=== PATIENT | female | born 1950 | race Caucasian/White ===

== ENCOUNTER 2019-09-22 16:26 | Inpatient (IN) | payer MEDICARE, OTHER ==
[~2019-09-22] VITALS: Ht 162.6 cm; Wt 68.9 kg
--- NOTE | 2019-09-22 16:30 | NUR ---
PT BIB [facility] FROM [facility] DUE TO POOR INTAKE AND WEAKNESS, PT IS AAOX1, NOT IN RESPIRATORY DISTRESS, HOOKED TO TOWNSHIP SUPERVISOR, KEPT RESTED AND COMFORTABLE. WILL CONTINUE TO MONITOR.
--- NOTE | 2019-09-22 17:00 | NUR ---
URINE SPECIMEN COLLECTED AND SENT TO LAB.
--- NOTE | 2019-09-22 17:04 | NUR ---
COVID SWAB OBTAINED AND SENT TO LAB.
--- NOTE | 2019-09-22 17:09 | NUR ---
ER PHLEB AT BEDSIDE FOR BLOOD DRAW.
[2019-09-22] MEDS ORDERED: FERR325T23 PO (17:11)
[2019-09-22] MEDS ORDERED: ACET-868 PO (17:11)
[2019-09-22] MEDS ORDERED: BISA5TAB10 PO (17:11)
[2019-09-22] MEDS ORDERED: ACID1TAB12 PO (17:11)
[2019-09-22] MEDS ORDERED: MAG30ORA PO (17:11)
[2019-09-22] MEDS ORDERED: POLY17PO4 PO (17:11)
[2019-09-22] MEDS ORDERED: ONDA4TAB5 PO (17:11)
[2019-09-22] MEDS ORDERED: FURO-145 PO (17:11)
[2019-09-22] MEDS ORDERED: PANT40TA2 PO (17:11)
[2019-09-22] MEDS ORDERED: APIX5TAB PO (17:11)
[2019-09-22] MEDS ORDERED: ASCO-352 PO (17:11)
[2019-09-22] MEDS ORDERED: MORP20SO PO ×2 (17:11)
[2019-09-22] MEDS ORDERED: MULT-24 PO (17:11)
--- NOTE | 2019-09-22 17:19 | NUR ---
CALLED NURSING SUP FOR TELE BED.
[2019-09-22 17:23] LABS: BASOPHILS # (AUTO) 0.2 /CMM (0.0-0.2); BASOPHILS % (AUTO) 0.7 % (0.0-2.0); HEMATOCRIT 27 % (33-45); HEMOGLOBIN 7.5 g/dL (11.5-14.8); LYMPHOCYTES # (AUTO) 2.7 /CMM (0.8-4.8); LYMPHOCYTES % (AUTO) 8.3 % (20.0-44.0); MEAN CORPUSCULAR HGB CONC 28 g/dl (31.0-36.0); MEAN CORPUSCULAR VOLUME 94 fL (82-100); MONOCYTES # (AUTO) 1.1 /CMM (0.1-1.30); MONOCYTES % (AUTO) 3.3 % (2.0-12.0); NEUTROPHILS # (AUTO) 29.2 /CMM (1.8-8.9); NEUTROPHILS % (AUTO) 87.7 % (43.0-81.0); PLATELET COUNT (AUTO) 378 /CMM (150-450); RED BLOOD CELL COUNT(AUTO) 2.88 MIL/uL (4.0-5.2)
[2019-09-22 17:32] LABS: WHITE BLOOD COUNT (AUTO) 33.2 K/uL (4.3-11.0)
[2019-09-22 17:46] LABS: ALANINE AMINOTRANSFERASE 19 U/L (12-78); ALKALINE PHOSPHATASE 368 U/L (46-116); ASPARTATE AMINOTRANSFERASE 302 U/L (15-37); B-TYPE NATRIURETIC PEPTIDE 1560 PG/ML (0-125); BILIRUBIN,TOTAL 2.7 mg/dL (0.2-1.0); CALCIUM, SERUM 7.2 mg/dL (8.5-10.1); CARBON DIOXIDE 19 mmol/L (21-32); CHLORIDE 94 mmol/L (98-107); CREATININE 0.9 mg/dL (0.6-1.3); POTASSIUM 5.7 mmol/L (3.5-5.1); SODIUM SERUM 129 mmol/L (136-145); TOTAL PROTEIN, SERUM 5.6 g/dL (6.4-8.2); UREA NITROGEN, BLOOD 31 mg/dL (7-18)
[2019-09-22 17:48] LABS: ALBUMIN 1.1 g/dL (3.4-5.0); GLUCOSE 40 mg/dL (74-106)
[2019-09-22] MEDS ORDERED: DEXTROSE 50%-WATER 50 ML DISP.SYRIN ONE (17:48)
[2019-09-22] MEDS ORDERED: IV D5 LR 1,000 ML IV ONE (17:50)
--- NOTE | 2019-09-22 17:58 | NUR ---
RT at bedside for ABG
[2019-09-22] MEDS ORDERED: DEXTROSE 50%-WATER 50 ML DISP.SYRIN IV ONE (18:00)
[2019-09-22 18:01] LABS: APPEARANCE,URINE Slightly Cloudy (CLEAR); BILIRUBIN,URINE LARGE (NEGATIVE); BLOOD, URINE Trace-lysed Ery/uL (NEGATIVE); COLOR,URINE Brown (YELLOW); KETONES,URINE 15 (NEGATIVE); LEUKOCYTE ESTERASE ,URINE Negative (NEGATIVE); NITRITE, URINE Negative (NEGATIVE); PROTEIN,URINE 30 mg/dl (NEGATIVE); UGLUCOSE Negative (NEGATIVE); UROBILINOGEN,URINE >=8.0 EU/dL (0.2)
[2019-09-22 18:05] LABS: ABG BASE EXCESS -6.7 mmol/L; ABG OXYGEN SATURATION 98.6 % (92.0-98.5); ABG PCO2 25.7 mmHg (35.0-45.0); ABG PH 7.432 (7.350-7.450); ABG PO2 148.2 mmHg (75.0-100.0); AaDO2 49.9 mmHg; COHb 0.6 % (0.5-1.5); MetHb 0.7 % (0.0-1.5); O2Hb 97.3 % (94.0-97.0); SITE, ABG Right Radial; VENT MODE, BG 3L NC
[2019-09-22 18:22] LABS: BACTERIA,URINE Few /HPF (None Seen); SQUAMOUS EPITHELIAL CELL,UR Few /HPF (None Seen); URINE AMORPHOUS URATE Moderate /HPF (None Seen); WBC,URINE 0-2 /HPF (0-3)
[2019-09-22 18:24] LABS: CALCIUM PHOSPHATE CRYSTALS,UR Few /HPF (None Seen)
[2019-09-22 18:36] LABS: D-DIMER 8.1 mg/L(FEU (0.17-0.50)
[2019-09-22 18:49] LABS: CREATINE KINASE, TOTAL 462 U/L (26-192); FERRITIN 2704 ng/mL (8-388)
[2019-09-22 18:50] LABS: C-REACTIVE PROTEIN 42.1 mg/dL (0.0-0.9)
--- NOTE | 2019-09-22 18:52 | NUR ---
MD MADE AWARE OF BP. VERBAL ORDER RECEIVED FOR 500ML NS IVPB. CARRIED OUT, PATIENT PLACED IN [place] POSITION. WILL CONTINUE TO MONITOR PATIENT.
[2019-09-22] MEDS ORDERED: IV NS 0.9% 500 ML BAG IV ONE ×2 (19:00→20:00)
--- NOTE | 2019-09-22 19:16 | NUR ---
REPORT GIVEN TO LAKISHA PARHAM FOR NICCI
--- NOTE | 2019-09-22 19:36 | NUR ---
notified of low blood pressure
--- NOTE | 2019-09-22 19:37 | NUR ---
MD ORDERED FOR 500ML OF NORMAL SALINE 0.9% IV.
--- NOTE | 2019-09-22 19:40 | NUR ---
PATIENT IS GIVEN IV NORMAL SALINE 0.9% 500ML PER MD'S ORDER.
--- NOTE | 2019-09-22 19:57 | NUR ---
INTELLECTUAL PROPERTY COUNSEL AT BEDSIDE FOR BLOOD DRAW
[2019-09-22 20:04] LABS: BAND % (MANUAL) 1 % (0.0-5.0); LYMPHOCYTES % (MANUAL) 5 % (16-48); MONOCYTES % (MANUAL) 4 % (0-11.0); NEUTROPHILS % (MANUAL) 90 (42-76)
--- NOTE | 2019-09-22 20:09 | NUR ---
REPORT GIVEN TO HELENA PARHAM FOR NICCI.
--- NOTE | 2019-09-22 20:27 | NUR ---
PATIENT TAKEN UP TO ADMITTING ROOM.
[2019-09-22 20:29] LABS: BILIRUBIN,DIRECT 2.1 mg/dL (0.0-0.2)
--- NOTE | 2019-09-22 20:45 | NUR ---
RN OPENING NOTES CONT.... The client SR on external telemonitor. The client has edema in the lower extremities, sacral redness, and bilateral lower extremities heel redness. Has a Martini cath draining well. Is on clear liquid diet. the client is covid + as of 09/12/19. All safety mechanisms in place at this time, will continue to monitor and inform the hospitalist of the client condition.
--- NOTE | 2019-09-22 20:45 | NUR ---
RN OPENING NOTES Receive the client from the ED. VS 85/52, HR 104, RR 20, O2 SAT 100% on 2L NC, TEMP 97.5. A/O X1. The client doesn't seem in respiratory distress, denies pain, has no s/s of pain. The client was give IV bolus of 500ml of NS. Hss 20G on the L arm.
--- NOTE | 2019-09-22 21:10 | NUR ---
2109 PAGED JORDY MONDRAGON FOR ADMISSION ORDERS, PER HIM JORDY LONDONO WILL WRITE ORDERS.
--- NOTE | 2019-09-22 21:20 | NUR ---
2119 FISHER SPONGE HOOKING SPRING NOTIFIED OF ADMISSION. MADE HER AWARE THAT PATIENT'S BP UPON ADMISSION WAS IN THE 80S WHEN CHECKED TWICE. ALSO MADE HER AWARE THAT PER SON PATIENT IS DNR/DNI. SHE SAID SHE IS WRITING ORDERS.
[2019-09-22] MEDS ORDERED: Z GUARD REMEDY 2 OZ OINT TP PRN (21:30)
[2019-09-22] MEDS ORDERED: ACETAMINOPHEN 325 MG TABLET PO PRN (21:30)
[2019-09-22] MEDS ORDERED: ZOLPIDEM TARTRATE 5 MG TABLET PO PRN (21:30)
[2019-09-22] MEDS ORDERED: IV NS 0.9% 500 ML IV ONE (21:30)
[2019-09-22] MEDS ORDERED: ONDANSETRON HCL/PF 4 MG/2 ML VIAL IVP PRN (21:30)
--- NOTE | 2019-09-22 21:32 | NUR ---
2132 CURRENT BP 93/42 RELAYED TO JORDY LONDONO.
--- NOTE | 2019-09-22 21:44 | NUR ---
RN NOTES SPOKE WITH THE SON OF THE CLIENT AT 2129 ABOUT THE STATUS CODE OF THE CLIENT. The son, Chance Clarke states that it is the wish of the client (Seda Goff) to be DNR/DNI. The son of the client has requested that if the client becomes unstable to be transferred to ICU. The current VS of the client are as follow BP 93/59, O2 100%, A/O x1. Hr 103. Hospitalist is aware.
[2019-09-22] MEDS: ZOSYN IVPB 3.375 G in IV D5W 50ml IV SCH (22:00)
--- NOTE | 2019-09-22 22:00 | NUR ---
RN NOTES VS are being monitored and are as follow: BP 89/56, HR 103, SAT 98% ON 2L NC, RR 17. Hospitalist is aware.
[2019-09-22] MEDS: HEPARIN SODIUM, PORCINE 5000 UNITS/1 ML VIAL SQ SCH (22:11)
[2019-09-22] MEDS ORDERED: DEXTROSE 50%-WATER 50 ML DISP.SYRIN IV PRN (22:30)
[2019-09-22] MEDS ORDERED: VANCOMYCIN 1.5 GM in IV D5W 500ml IV ONE (22:30)
--- NOTE | 2019-09-22 22:30 | NUR ---
2230 METAL RIVET MACHINE OPERATOR SPRING AT BEDSIDE AND EXAMINED PATIENT. AWARE OF LATEST BP 83/48. SHE IS SPEAKING TO PATIENT'S SON BENTLEY AT THIS TIME.
[2019-09-22] MEDS ORDERED: PIPERACILLIN /TAZOBACTAM 3.375 G VIAL IV ONE (22:45)
[2019-09-22] MEDS ORDERED: VANCOMYCIN 1 GM VIAL ONE (22:45)
--- NOTE | 2019-09-22 23:00 | NUR ---
RN NOTES VS are as follow: temp 97.4, HR 103, RR18, O2 100% ON 2L NC, BP 84/49. Hospitalist has recommended to transferred the client to ICU.
[2019-09-23] VITALS (89 sets, daily range): BP systolic 75–112; BP diastolic 25–69
--- NOTE | 2019-09-23 00:10 | NUR ---
0010 SPRING WAS UPDATED ON PATIENT'S LATEST VITAL SIGNS INSTRUCTED BY HER, FOLLOWS: BP 76/44, HR 97, O2 SAT 100% T 97.4 WITH ORDER TO TRANSFER PATIENT TO ICU AND TO START ON LEVOPHED FOR BP SUPPORT. ORDER NOTED. HOUSE SUP AND ICU CHARGE NURSE NOTIFIED.
[2019-09-23] MEDS: BLOOD SUGAR DIAGNOSTIC 1 EACH STRIP IN SCH ×4 (00:18→17:29)
[2019-09-23] MEDS: IV D5/ 0.9% NACL 1,000 ML IV PRN ×2 (00:22→12:18)
[2019-09-23] MEDS ORDERED: NOREPINEPHRINE 8 MG in IV NS 0.9% 242 ML IV PRN (00:30)
--- NOTE | 2019-09-23 00:30 | NUR ---
RN NOTES Spoke with the son of the client that the client as previously mentioned will be transferring to ICU. The son was reached at [phone].
--- NOTE | 2019-09-23 00:35 | NUR ---
0035 REPORT GIVEN TO PRASAD CALIX FOR TRANSFER OF CARE WITH QUESTIONS ANSWERED.
--- NOTE | 2019-09-23 00:55 | NUR ---
0055 TRANSFER TO ICU ON ACLS PROTOCOL.
[2019-09-23] MEDS ORDERED: NOREPINEPHRINE 4 MG/4 ML AMPUL IV ONE (01:28)
[2019-09-23 01:34] LABS: CALCIUM, SERUM 7.1 mg/dL (8.5-10.1)
[2019-09-23] MEDS: NOREPINEPHRINE 8 MG in IV NS 0.9% 242 ML IV PRN ×4 (02:47→22:59)
[2019-09-23 04:16] LABS: BASOPHILS # (AUTO) 0.1 /CMM (0.0-0.2); BASOPHILS % (AUTO) 0.3 % (0.0-2.0); EOSINOPHILS % (AUTO) 0.1 % (0.0-6.0); HEMATOCRIT 23 % (33-45); MEAN CORPUSCULAR HGB CONC 29 g/dl (31.0-36.0); MEAN CORPUSCULAR VOLUME 91 fL (82-100); MONOCYTES # (AUTO) 1.3 /CMM (0.1-1.30); MONOCYTES % (AUTO) 3.8 % (2.0-12.0); NEUTROPHILS # (AUTO) 31.2 /CMM (1.8-8.9); NEUTROPHILS % (AUTO) 92.8 % (43.0-81.0); PLATELET COUNT (AUTO) 395 /CMM (150-450); RED BLOOD CELL COUNT(AUTO) 2.54 MIL/uL (4.0-5.2)
[2019-09-23 04:33] LABS: CALCIUM, SERUM 6.7 mg/dL (8.5-10.1); CARBON DIOXIDE 18 mmol/L (21-32); CHLORIDE 96 mmol/L (98-107); CREATININE 1.1 mg/dL (0.6-1.3); GLUCOSE 122 mg/dL (74-106); MAGNESIUM 2.3 mg/dL (1.8-2.4); PHOSPHORUS 4.9 mg/dL (2.5-4.9); POTASSIUM 4.7 mmol/L (3.5-5.1); SODIUM SERUM 129 mmol/L (136-145); UREA NITROGEN, BLOOD 29 mg/dL (7-18)
[2019-09-23 04:35] LABS: CHOLESTEROL 163 mg/dL (<200); CREATINE KINASE, TOTAL 317 U/L (26-192); LDL 125 mg/dL (0-99); TRIGLYCERIDES 263 mg/dL (30-150)
[2019-09-23 04:55] LABS: HDL CHOLESTEROL < 10 mg/dL (40-60)
[2019-09-23 05:00] LABS: HEMOGLOBIN 6.6 g/dL (11.5-14.8); WHITE BLOOD COUNT (AUTO) 33.6 K/uL (4.3-11.0)
[2019-09-23 05:02] LABS: BAND % (MANUAL) 3 % (0.0-5.0); LYMPHOCYTES % (MANUAL) 2 % (16-48); MONOCYTES % (MANUAL) 2 % (0-11.0); NEUTROPHILS % (MANUAL) 93 (42-76)
[2019-09-23] MEDS ORDERED: PIPERACILLIN /TAZOBACTAM 3.375 G VIAL IV ONE (05:08)
[2019-09-23] MEDS: ZOSYN IVPB 3.375 G in IV D5W 50ml IV SCH (05:11)
[2019-09-23] MEDS ORDERED: IV NS 0.9% 500 ML IV ONE (06:30)
--- NOTE | 2019-09-23 06:30 | NUR ---
NOTIFIED QUINCY MONDRAGON NP THAT PATIENT HAS MULTIPLE CRITICAL LAB VALUES WHICH ARE WBC- 33.6, HGB-6.6/HCT- 23, LACTIC ACID 5.5 WITH ORDERS TO GIVE 1 UNIT PRBC, 500 NS BOLUS WITH LACTIC ACID RECHECK AFTER BOLUS. READ BACK ORDERS PERFORMED AND CARRIED OUT. WILL CONTINUE TO MONITOR.
[2019-09-23] MEDS ORDERED: IV NS 0.9% 250 ML IV ONE (07:00)
[2019-09-23] MEDS ORDERED: FEE PK DOSING 1 MIN EA MC ONE (07:23)
--- NOTE | 2019-09-23 07:23 | NUR ---
WOUND CARE CONSULT: REVIEWED CHART, NURSING DOCUMENTATION AND PHOTOS WHICH SHOW DISCOLORATION TO FEET AND HEELS, SACRAL INTACT DEEP TISSUE INJURY AND MALIGNANT WOUND TO ABDOMEN, ALL PRESENT ON ADMISSION. RECOMMEND SURGICAL CONSULT. DR DYER TO BE NOTIFIED OF CONSULT REQUEST. RECOMMENDATIONS MADE FOR SKIN PROTECTION AND DISCUSSED WITH NURSING STAFF. FIRST STEP LOW AIRLOSS MATTRESS IS ON ORDER. WILL SEE PRN. IN AGREEMENT WITH PLAN OF CARE.
--- NOTE | 2019-09-23 08:44 | NUR ---
received pt from chief privacy officer, s/p severe sepsis, covid positive, metastatic colon cancer, lethargic, follows commands at times, ST, on 2L 02 sat well, BL leg edema, NPO, f/c intact, blood transfusion started, v/s stable, no pain, pt turned and repositioned.
[2019-09-23] MEDS: HEPARIN SODIUM, PORCINE 5000 UNITS/1 ML VIAL SQ SCH ×2 (09:34→21:11)
[2019-09-23 09:44] LABS: IRON, SERUM 21 ug/dl (50-175); TOTAL IRON BINDING CAPACITY 49 ug/dl (250-450)
[2019-09-23] MEDS: VANCOMYCIN 1 GM in IV D5W 250 ML IV SCH ×2 (11:15→22:52)
--- NOTE | 2019-09-23 12:07 | NUR ---
1 unit PRBCs transfused, v/s stable, no transfusion reactions.
[2019-09-23 12:38] LABS: FERRITIN 2537 ng/mL (8-388)
[2019-09-23] MEDS: HYDROCORTISONE SOD SUCCINATE 100 MG/2 ML VIAL IV SCH ×2 (12:41→16:32)
[2019-09-23] MEDS: PIPERACILLIN /TAZOBACTAM 3.375 G in IV D5W 100 ML IV SCH ×2 (12:41→20:22)
--- NOTE | 2019-09-23 16:08 | NUR ---
pt is resting in the bed, lethargic, non communicative, ST, receiving levo at 0.3mcg, v/s stable, no pain, pt cleaned, changed and repositioned.
--- NOTE | 2019-09-23 18:56 | NUR ---
PRELIMINARY DUPLEX VENOUS LOWER EXT BI SHOWED POSITIVE FOR DVT AT LT GSV,CFV,SFV,POPV AND RIGHT POPV. INITIAL FINDINGS RELAYED TO RN.
--- NOTE | 2019-09-23 19:45 | NUR ---
ICU/PROGRAM CHECKER REPORT RECEIVED FROM THE TO DAY NURSE. SEE FLOWSHEET FOR ASSESSMENT, SKIN ISSUES ARE ADDRESSED ON FLOWSHEET ALONG WITH INTERVENTION TO EACH. PT ALERT X1-2. PT IS ON 2 LITERS VIA N/C WITH SATURATION AT 99%. WILL MONITOR THIS PT AND HER SATURATION. PT WAS TURNED AND REPOSITIONED FOR COMFORT AND CARE. NO ACUTE DISTRESS SEEN AT THIS TIME, WILL CONTINUE TO MONITOR THIS PT.
--- NOTE | 2019-09-23 19:50 | NUR ---
ICU/CHAINMAN RENAISSANCE IMAGING CALLED WITH CRITICAL RESULT FOR US THAT WAS DONE EARLIER BUT RESULTED AT 1923. THIS WAS: Right leg: Positive DVT in the popliteal vein. Left leg: Positive DVT from the common femoral vein to the popliteal vein. There is also clot extending into the greater saphenous vein. CALL WAS PLACED TO THE MAKING LINE WORKER QUINCY LUND
--- NOTE | 2019-09-23 20:15 | NUR ---
ICU/SIMULATION TECH WET MACHINE CUTTER EQUIPMENT OILER QUINCY LUND CALLED BACK, TOLD ABOUT US RESULT SAID OK, AND THAT PT IS BLEEDING FROM SOME WHERE. TRUE THAT THE PT RECEIVED 1 UNIT PRBC. THEN SAID OK NO NEW ORDERERS.
[2019-09-24] VITALS (91 sets, daily range): BP systolic 94–123; BP diastolic 58–90
[2019-09-24] MEDS ORDERED: MORPHINE SULFATE INJ 2 MG/ML DISP.SYRIN IM ONE
--- NOTE | 2019-09-24 00:10 | NUR ---
ICU/FRAME TENDER PT APPEARED TO BE IN PAIN, USING FLACC SCALE IT WAS DETERMINED THAT PAIN WAS 10/10. THERE WAS NO PRN MEDICATION. A CALL WAS PLACED TO THE ELECTRIFIER OPERATOR REMBERTO MATHEW FOR SOMETHING.
--- NOTE | 2019-09-24 00:20 | NUR ---
ICU/SPRING COILER GOT AN ORDER FOR MORPHINE 2 MG IVP TIMES ONE. ORDER WAS PLACED IN COMPUTER THEN CARRIED OUT BY CHARGE NURSE. WILL CONTINUE TO MONITOR THIS PT AND HER PAIN LEVEL.
[2019-09-24] MEDS: BLOOD SUGAR DIAGNOSTIC 1 EACH STRIP IN SCH ×4 (00:26→17:21)
[2019-09-24] MEDS: INSULIN REGULAR, HUMAN 100 UNIT/ML 3 ML VIAL SQ PRN ×2 (00:27→04:58)
[2019-09-24] MEDS: PIPERACILLIN /TAZOBACTAM 3.375 G in IV D5W 100 ML IV SCH ×3 (02:58→19:44)
[2019-09-24] MEDS: IV D5/ 0.9% NACL 1,000 ML IV PRN ×2 (04:18→17:25)
[2019-09-24 05:19] LABS: CALCIUM, SERUM 7.1 mg/dL (8.5-10.1); CREATININE 1.6 mg/dL (0.6-1.3); MAGNESIUM 2.2 mg/dL (1.8-2.4); PHOSPHORUS 5.2 mg/dL (2.5-4.9); POTASSIUM 4.6 mmol/L (3.5-5.1)
[2019-09-24 05:27] LABS: BASOPHILS # (AUTO) 0.1 /CMM (0.0-0.2); BASOPHILS % (AUTO) 0.2 % (0.0-2.0); HEMATOCRIT 30 % (33-45); HEMOGLOBIN 8.6 g/dL (11.5-14.8); LYMPHOCYTES # (AUTO) 0.8 /CMM (0.8-4.8); LYMPHOCYTES % (AUTO) 2.1 % (20.0-44.0); MEAN CORPUSCULAR HGB CONC 29 g/dl (31.0-36.0); MEAN CORPUSCULAR VOLUME 92 fL (82-100); MONOCYTES # (AUTO) 0.9 /CMM (0.1-1.30); MONOCYTES % (AUTO) 2.6 % (2.0-12.0); NEUTROPHILS # (AUTO) 34.3 /CMM (1.8-8.9); NEUTROPHILS % (AUTO) 95.1 % (43.0-81.0); PLATELET COUNT (AUTO) 379 /CMM (150-450); RED BLOOD CELL COUNT(AUTO) 3.21 MIL/uL (4.0-5.2)
[2019-09-24 05:29] LABS: WHITE BLOOD COUNT (AUTO) 36.1 K/uL (4.3-11.0)
[2019-09-24 05:39] LABS: BAND % (MANUAL) 2 % (0.0-5.0); LYMPHOCYTES % (MANUAL) 8 % (16-48); MONOCYTES % (MANUAL) 4 % (0-11.0); NEUTROPHILS % (MANUAL) 86 (42-76)
[2019-09-24] MEDS: NOREPINEPHRINE 8 MG in IV NS 0.9% 242 ML IV PRN (06:45)
--- NOTE | 2019-09-24 08:16 | NUR ---
received pt from nightclub manager, alert, does not follow commands, non communicative, SR, on 2L 02 sat well, unable to swallow, f/c low urine output, receiving levo at 0.3mcg, v/s stable, we'll ask for PRN pain meds, pt turned and repositioned.
[2019-09-24] MEDS: HYDROCORTISONE SOD SUCCINATE 100 MG/2 ML VIAL IV SCH ×3 (08:27→16:26)
[2019-09-24] MEDS: HEPARIN SODIUM, PORCINE 5000 UNITS/1 ML VIAL SQ SCH ×2 (08:29→20:19)
[2019-09-24] MEDS: VANCOMYCIN 1 GM in IV D5W 250 ML IV SCH (11:00)
[2019-09-24] MEDS: MUPIROCIN OINT 2% 22 GM TUBE SCH ×2 (11:23→20:21)
[2019-09-24] MEDS: MORPHINE SULFATE INJ 4 MG/ML DISP.SYRIN IV PRN (13:39)
--- NOTE | 2019-09-24 16:18 | NUR ---
pt is resting in the bed, alert, does not follow commands, ST, on levo at 0.1mcg, f/c very low output MD aware, v/s stable, morphine 4mg ivp given for pain, seen by Dr Weeks, pt cleaned, changed and repositioned.
[2019-09-24] MEDS: NOREPINEPHRINE 8 MG in IV D5W 242 ML IV PRN (17:02)
--- NOTE | 2019-09-24 19:45 | NUR ---
ICU/IT APPLICATIONS MANAGER REPORT RECEIVED FROM THE TO DAY NURSE. SEE FLOWSHEET FOR ASSESSMENT, SKIN ISSUES ARE ADDRESSED ON FLOWSHEET ALONG WITH INTERVENTION TO EACH. PT ALERT X1. PT IS ON 2 LITERS VIA N/C WITH SATURATION AT 99%. WILL MONITOR THIS PT AND HER SATURATION. PT WAS TURNED AND REPOSITIONED FOR COMFORT AND CARE. NO ACUTE DISTRESS SEEN AT THIS TIME, WILL CONTINUE TO MONITOR THIS PT.
--- NOTE | 2019-09-24 22:10 | NUR ---
ICU/SOFT SUGAR CUTTER PT WAS PROVIDED ORAL CARE AT THIS TIME, THEN PT GIVEN PM CARE. PT TOLERATED THIS WELL, REMAINS ON 2 LITERS VIA N/C WITH SATURATION AT 99%. PT WAS TURNED AND REPOSITIONED FOR COMFORT AND CARE. WILL CONTINUE TO MONITOR THIS PT
[2019-09-25] VITALS (93 sets, daily range): BP systolic 91–124; BP diastolic 54–77
--- NOTE | 2019-09-25 | NUR ---
ICU/SALES PRODUCT MANAGER MIDNIGHT BLOOD SUGAR WAS 101, THERE IS NO COVERED FOR THIS PER SLIDING SCALE ORDERED BY MD. WILL CONTINUE TO MONITOR THIS PER MD ORDERS AND HOSPITAL PROTOCOL.
[2019-09-25] MEDS: BLOOD SUGAR DIAGNOSTIC 1 EACH STRIP IN SCH ×4 (00:08→17:36)
--- NOTE | 2019-09-25 02:20 | NUR ---
ICU/BINDERY CUTTER OPERATOR PT WAS PROVIDED ORAL CARE AT THIS TIME, THEN PT GIVEN AM CARE. PT TOLERATED THIS WELL, REMAINS ON 2 LITERS VIA N/C WITH SATURATION AT 99%. PT WAS TURNED AND REPOSITIONED FOR COMFORT AND CARE. WILL CONTINUE TO MONITOR THIS PT
--- NOTE | 2019-09-25 03:45 | NUR ---
ICU/RABBIT FANCIER MORNING LABS WERE DRAWN, AWAIT FOR NAY ABNORMAL RESULTS.
[2019-09-25] MEDS: PIPERACILLIN /TAZOBACTAM 3.375 G in IV D5W 100 ML IV SCH ×2 (04:03→11:29)
[2019-09-25 04:24] LABS: BASOPHILS # (AUTO) 0.2 /CMM (0.0-0.2); BASOPHILS % (AUTO) 0.4 % (0.0-2.0); HEMATOCRIT 28 % (33-45); HEMOGLOBIN 8.1 g/dL (11.5-14.8); LYMPHOCYTES % (AUTO) 2.5 % (20.0-44.0); MEAN CORPUSCULAR HGB CONC 29 g/dl (31.0-36.0); MEAN CORPUSCULAR VOLUME 93 fL (82-100); MONOCYTES # (AUTO) 1.2 /CMM (0.1-1.30); NEUTROPHILS % (AUTO) 94.1 % (43.0-81.0); PLATELET COUNT (AUTO) 334 /CMM (150-450); RED BLOOD CELL COUNT(AUTO) 3.02 MIL/uL (4.0-5.2)
[2019-09-25 04:31] LABS: WHITE BLOOD COUNT (AUTO) 40.4 K/uL (4.3-11.0)
[2019-09-25 04:33] LABS: CALCIUM, SERUM 7.3 mg/dL (8.5-10.1); CREATININE 1.9 mg/dL (0.6-1.3); MAGNESIUM 2.3 mg/dL (1.8-2.4); PHOSPHORUS 5.8 mg/dL (2.5-4.9); POTASSIUM 4.8 mmol/L (3.5-5.1)
[2019-09-25] MEDS: MORPHINE SULFATE INJ 4 MG/ML DISP.SYRIN IV PRN ×2 (04:54→15:14)
--- NOTE | 2019-09-25 05:00 | NUR ---
ICU/SEMICONDUCTOR PACKAGE SYMBOL STAMPER PT APPEARED TO BE IN PAIN, USING FLACC SCALE IT WAS DETERMINED THAT PAIN WAS 10/10. NOTIFIED CHARGE NURSE ABOUT THIS, WHO THEN GAVE PRN MORPHINE 4MG IVP. WILL CONTINUE TO MONITOR TJIS PT'S PAIN.
[2019-09-25 05:08] LABS: BAND % (MANUAL) 5 % (0.0-5.0); LYMPHOCYTES % (MANUAL) 9 % (16-48); MONOCYTES % (MANUAL) 1 % (0-11.0); NEUTROPHILS % (MANUAL) 85 (42-76)
--- NOTE | 2019-09-25 05:15 | NUR ---
ICU/BEEF CATTLE FARM MANAGER MORNING BLOOD SUGAR WAS 109, THERE IS NO COVERED FOR THIS PER SLIDING SCALE ORDERED BY MD. WILL CONTINUE TO MONITOR THIS PER MD ORDERS AND HOSPITAL PROTOCOL.
[2019-09-25] MEDS ORDERED: BUMETANIDE INJ 4 MG in IV D5W 24 ML IV ONE (08:30)
[2019-09-25] MEDS: HYDROCORTISONE SOD SUCCINATE 100 MG/2 ML VIAL IV SCH ×3 (08:43→17:14)
[2019-09-25] MEDS: MUPIROCIN OINT 2% 22 GM TUBE SCH ×2 (08:44→20:40)
[2019-09-25] MEDS: HEPARIN SODIUM, PORCINE 5000 UNITS/1 ML VIAL SQ SCH ×2 (08:45→20:43)
--- NOTE | 2019-09-25 12:13 | NUR ---
RN NOTE 0715: Received patient passive, awake, answers yes/no to some questions. With IRLANDA PICC intact. IVF infusing as ordered. On Levo @ 0.1mcg, will titrate as ordered. Martini cath intact, noted with very minimal dark winston colored urine. 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 On 2LPM of O2 via NC, satting well. Noted with distended abdomen. Temp 98.8 at this time. 0900: Noted with x1 vomiting, Zofran given as ordered. Kept HOB elevated, unable to tolerated diet. 1150: S/E by Cassandra SPENCE, reported episode of vimitting x1 with dark greenish vomitus. On Levo 0.08mcg at this time. 1210: Placed left NGT, draining dark green gastric residuals, connected to LIS. Noted with 100mL.
[2019-09-25] MEDS: NOREPINEPHRINE 8 MG in IV D5W 242 ML IV PRN (13:01)
[2019-09-25 13:27] LABS: CREATININE, URINE 69.6 MG/DL (30.0-125.0); URINE TOTAL PROTEIN 259.8 mg/dL (0-11.9)
[2019-09-25 14:14] LABS: APPEARANCE,URINE CLOUDY (CLEAR); BILIRUBIN,URINE MODERATE (NEGATIVE); BLOOD, URINE SMALL Ery/uL (NEGATIVE); COLOR,URINE YELLOW (YELLOW); KETONES,URINE TRACE (NEGATIVE); LEUKOCYTE ESTERASE ,URINE TRACE (NEGATIVE); NITRITE, URINE NEGATIVE (NEGATIVE); PROTEIN,URINE 100 mg/dl (NEGATIVE); UGLUCOSE NEGATIVE (NEGATIVE)
[2019-09-25 15:16] LABS: BACTERIA,URINE 3+ /HPF (None Seen); SQUAMOUS EPITHELIAL CELL,UR 0-2 /HPF (None Seen); YEAST,URINE Moderate /HPF (None Seen)
[2019-09-25 15:26] LABS: EOSINOPHIL,URINE None Seen
--- NOTE | 2019-09-25 17:30 | NUR ---
RN NOTE Noted with trying to pull out NGT, placed right SW restraints for safety. LEGAL RECORDS MANAGER made aware.
[2019-09-25] MEDS: IV D5/ 0.9% NACL 1,000 ML IV PRN (18:33)
--- NOTE | 2019-09-25 19:15 | NUR ---
ICU/RN RECEIVED PATIENT A/O X1 PATIENT IS ABLE TO ANSWER TO YES OR NO QUESTIONS BY NODDING. PATIENT NODS TO YES WHEN ASKED IF SHE IS A KHMER SPEAKER. I ASKED HER TO STATE HER NAME BUT PATIENT IS ONLY ABLE TO MUMBLE. PATIENT IS ON 2L OF 02 SATURATING AT 100% WITH NO SIGNS OF ANY SOB. RESPIRATING ARE EVEN AND UNLABORED. PATIENT IS SR AND ST WITH HR AT 105 ON THE BEDSIDE MONITOR. RECORDING STUDIO INTERNSHIP RESTRAINTS APPLIED. FC PATENT AND DRAINING VIA GRAVITY. LT NGT IS ASSESSED WITH LIS WITH DARK GREENISH OUTPUT SEEN. IRLANDA PICC LINE PATENT WITH LEVO RUNNING AT 0.06MCG/KG/MIN, D5NS @100CC/HR, AND TKO INFUSING. ALL SAFETY PRECAUTIONS APPLIED. WILL CONTINUE TO MONITOR PATIENT.
[2019-09-25] MEDS: CEFEPIME 2 GM in IV D5W 100 ML IV SCH (20:40)
[2019-09-26] VITALS (96 sets, daily range): BP systolic 84–105; BP diastolic 47–74
[2019-09-26] MEDS: BLOOD SUGAR DIAGNOSTIC 1 EACH STRIP IN SCH ×5 (00:18→23:52)
--- NOTE | 2019-09-26 01:25 | NUR ---
PATIENT BLEEDING FROM ABDOMEN AREA. MINIMAL BLEEDING SEEN, WILL APPLY PRESSURE WITH GAUZE AND CONTINUE TO MONITOR AREA.
[2019-09-26] MEDS ORDERED: GELATIN SPONGE,ABSORBABLE 1 SPONGE SPONGE TP ONE (02:04)
[2019-09-26] MEDS: MORPHINE SULFATE INJ 4 MG/ML DISP.SYRIN IV PRN (02:15)
[2019-09-26] MEDS: IV D5/ 0.9% NACL 1,000 ML IV PRN ×3 (04:01→23:24)
--- NOTE | 2019-09-26 04:15 | NUR ---
BLEEDING HAS STOPPED FROM ABDOMEN AREA. WILL CONTINUE TO MONITOR.
[2019-09-26] MEDS: INSULIN REGULAR, HUMAN 100 UNIT/ML 3 ML VIAL SQ PRN ×3 (06:07→17:43)
[2019-09-26 06:50] LABS: BASOPHILS # (AUTO) 0.6 /CMM (0.0-0.2); BASOPHILS % (AUTO) 1.3 % (0.0-2.0); EOSINOPHILS % (AUTO) 0.1 % (0.0-6.0); HEMATOCRIT 27 % (33-45); HEMOGLOBIN 7.7 g/dL (11.5-14.8); LYMPHOCYTES # (AUTO) 0.9 /CMM (0.8-4.8); LYMPHOCYTES % (AUTO) 2.1 % (20.0-44.0); MEAN CORPUSCULAR HGB CONC 29 g/dl (31.0-36.0); MEAN CORPUSCULAR VOLUME 94 fL (82-100); MONOCYTES # (AUTO) 1.2 /CMM (0.1-1.30); MONOCYTES % (AUTO) 2.7 % (2.0-12.0); NEUTROPHILS # (AUTO) 41.2 /CMM (1.8-8.9); NEUTROPHILS % (AUTO) 93.8 % (43.0-81.0); PLATELET COUNT (AUTO) 356 /CMM (150-450); RED BLOOD CELL COUNT(AUTO) 2.82 MIL/uL (4.0-5.2)
[2019-09-26 07:01] LABS: BILIRUBIN,TOTAL 1.7 mg/dL (0.2-1.0); CALCIUM, SERUM 7.5 mg/dL (8.5-10.1); CREATININE 2.2 mg/dL (0.6-1.3); MAGNESIUM 2.5 mg/dL (1.8-2.4); PHOSPHORUS 6.9 mg/dL (2.5-4.9); POTASSIUM 4.9 mmol/L (3.5-5.1); TOTAL PROTEIN, SERUM 5.2 g/dL (6.4-8.2)
[2019-09-26 07:04] LABS: ALBUMIN 0.9 g/dL (3.4-5.0)
--- NOTE | 2019-09-26 07:46 | NUR ---
ICU/RN INITIAL NOTES,AM RECEIVED REPORT FROM NIGHT NURSE. PT OPENS EYES, WEAK AND LETHARGIC. ON 2LITERS NASAL CANULA, NO ACUTE DISTRESS NOTED. SINUS TACK ON TELE 101. LEFT NARE NGT IN PLACE TO LIS. HUTCHINS CATH IN PLACE WITH MINIMAL URINE OUTPUT. RIGHT UPPER ARM PICC LINE PATENT AND INTACT, LOW DOSE LEVO FOR BP SUPPORT. SOME BLEEDING NOTED IN ABDOMINAL MASS. WILL CONTINUE TO MONITOR AND ASSESS. ALL NEEDS WILL BE ATTENDED TO, SAFETY MEASURES TAKEN, BED IN LOW POSITION, SIDE RAILS UP, CALL LIGHT WITHIN REACH.
[2019-09-26] MEDS: HYDROCORTISONE SOD SUCCINATE 100 MG/2 ML VIAL IV SCH ×3 (08:19→17:03)
[2019-09-26] MEDS: HEPARIN SODIUM, PORCINE 5000 UNITS/1 ML VIAL SQ SCH ×2 (08:20→21:16)
[2019-09-26] MEDS: MUPIROCIN OINT 2% 22 GM TUBE SCH ×2 (08:21→21:07)
--- NOTE | 2019-09-26 08:30 | NUR ---
ICU/RN: PER DR.PELEG CHE TO ADMINISTER HEPARIN DESPITE SOME BLEEDING NOTED AT ABDOMINAL SITE. WILL CONTINUE TO MONITOR AND ASSESS. BENEFITS OUTWEIGH RISKS.
[2019-09-26] MEDS: PANTOPRAZOLE 40 MG VIAL IV SCH (10:45)
[2019-09-26] MEDS ORDERED: BUMETANIDE INJ 4 MG in IV D5W 24 ML IV ONE (12:00)
[2019-09-26 13:30] LABS: LYMPHOCYTES % (MANUAL) 2 % (16-48); MONOCYTES % (MANUAL) 3 % (0-11.0); MYELOCYTES % 2 % (0-0); NEUTROPHILS % (MANUAL) 93 (42-76)
--- NOTE | 2019-09-26 16:00 | NUR ---
ICU/RN: FAMILY UPDATED ON PT CONDITION. WILL CONTINUE TO MONITOR. MD ROUNDS DONE. NO NEW ORDERS.
[2019-09-26] MEDS: NOREPINEPHRINE 8 MG in IV D5W 242 ML IV PRN (17:12)
--- NOTE | 2019-09-26 19:14 | NUR ---
ICU/RN ENDING NOTES,AM REPORT ENDORSED TO NIGHT NURSE. PT ALERT, LETHARGIC, FOLLOWS SIMPLE COMMANDS. ON 2LITERS NASAL CANULA, NO ACUTE DISTRESS NOTED. ALL NEEDS ATTENDED TO, SAFETY MEASURES TAKEN. WILL CONTINUE TO MONITOR. RIGHT WRIST RESTRAINT INPLACE, MONITORED PER PROTOCOL. NG TO LIS. SMALL OUTPUT NOTED.
--- NOTE | 2019-09-26 20:56 | NUR ---
ICU/RN RECEIVED PATIENT A/O X1 PATIENT IS ABLE TO ANSWER TO YES OR NO QUESTIONS BY NODDING.. PATIENT IS ON 2L OF 02 SATURATING AT 100% WITH NO SIGNS OF ANY SOB. RESPIRATING ARE EVEN AND UNLABORED. PATIENT IS SR AND ST WITH HR AT 101 ON THE BEDSIDE MONITOR. STEREOTYPE CASTER RESTRAINTS APPLIED. FC PATENT AND DRAINING VIA GRAVITY. LT NGT IS ASSESSED WITH LIS WITH DARK GREENISH OUTPUT SEEN. IRLNADA PICC LINE PATENT WITH LEVO RUNNING AT 0.08MCG/KG/MIN, D5NS @100CC/HR, AND TKO INFUSING. ASSESSED ABDOMEN AREA CURRENTLY NO SIGNS OF ANY BLEEDING.ALL SAFETY PRECAUTIONS APPLIED. WILL CONTINUE TO MONITOR PATIENT.
[2019-09-26] MEDS: CEFEPIME 2 GM in IV D5W 100 ML IV SCH (21:07)
[2019-09-26] MEDS: AMPICILLIN 1 GM in IV NS 0.9% 50 ML IV SCH (21:07)
[2019-09-27] VITALS (95 sets, daily range): BP systolic 76–132; BP diastolic 54–76
[2019-09-27] MEDS: MORPHINE SULFATE INJ 2 MG/ML DISP.SYRIN IV PRN (02:07)
[2019-09-27 04:10] LABS: BASOPHILS # (AUTO) 0.3 /CMM (0.0-0.2); BASOPHILS % (AUTO) 0.8 % (0.0-2.0); HEMATOCRIT 28 % (33-45); HEMOGLOBIN 7.7 g/dL (11.5-14.8); LYMPHOCYTES # (AUTO) 0.7 /CMM (0.8-4.8); LYMPHOCYTES % (AUTO) 1.6 % (20.0-44.0); MEAN CORPUSCULAR HGB CONC 28 g/dl (31.0-36.0); MEAN CORPUSCULAR VOLUME 96 fL (82-100); MONOCYTES # (AUTO) 1.2 /CMM (0.1-1.30); MONOCYTES % (AUTO) 2.6 % (2.0-12.0); NEUTROPHILS # (AUTO) 43.1 /CMM (1.8-8.9); PLATELET COUNT (AUTO) 306 /CMM (150-450); RED BLOOD CELL COUNT(AUTO) 2.88 MIL/uL (4.0-5.2)
[2019-09-27 04:33] LABS: BILIRUBIN,TOTAL 1.4 mg/dL (0.2-1.0); CREATININE 2.3 mg/dL (0.6-1.3); MAGNESIUM 2.2 mg/dL (1.8-2.4); PHOSPHORUS 6.8 mg/dL (2.5-4.9); TOTAL PROTEIN, SERUM 5.2 g/dL (6.4-8.2)
[2019-09-27 04:36] LABS: WHITE BLOOD COUNT (AUTO) 45.4 K/uL (4.3-11.0)
[2019-09-27 05:12] LABS: LYMPHOCYTES % (MANUAL) 1 % (16-48); MONOCYTES % (MANUAL) 2 % (0-11.0); NEUTROPHILS % (MANUAL) 97 (42-76)
[2019-09-27] MEDS: AMPICILLIN 1 GM in IV NS 0.9% 50 ML IV SCH ×3 (05:35→21:20)
[2019-09-27] MEDS: BLOOD SUGAR DIAGNOSTIC 1 EACH STRIP IN SCH ×3 (05:36→17:21)
[2019-09-27] MEDS: INSULIN REGULAR, HUMAN 100 UNIT/ML 3 ML VIAL SQ PRN ×3 (05:37→17:29)
--- NOTE | 2019-09-27 07:33 | NUR ---
ICU/RN INITIAL NOTES,AM RECEIVED REPORT FROM NIGHT NURSE. PT OPENS EYES, WEAK AND LETHARGIC. ON 2LITERS NASAL CANULA, NO ACUTE DISTRESS NOTED. SINUS TACK ON TELE 103. LEFT NARE NGT IN PLACE TO LIS. HUTCHINS CATH IN PLACE WITH MINIMAL URINE OUTPUT. RIGHT UPPER ARM PICC LINE PATENT AND INTACT, 0.2mcg/kg/min LEVO FOR BP SUPPORT. WILL CONTINUE TO MONITOR AND ASSESS. ALL NEEDS WILL BE ATTENDED TO, SAFETY MEASURES TAKEN, BED IN LOW POSITION, SIDE RAILS UP, CALL LIGHT WITHIN REACH.
[2019-09-27] MEDS: HYDROCORTISONE SOD SUCCINATE 100 MG/2 ML VIAL IV SCH ×4 (08:13→17:22)
[2019-09-27] MEDS: MUPIROCIN OINT 2% 22 GM TUBE SCH ×2 (08:14→21:21)
[2019-09-27] MEDS: HEPARIN SODIUM, PORCINE 5000 UNITS/1 ML VIAL SQ SCH ×2 (08:14→21:20)
[2019-09-27] MEDS: IV D5/ 0.9% NACL 1,000 ML IV PRN ×2 (08:54→19:26)
[2019-09-27] MEDS: PANTOPRAZOLE 40 MG VIAL IV SCH (08:57)
[2019-09-27] MEDS: NOREPINEPHRINE 8 MG in IV D5W 242 ML IV PRN ×2 (09:44→18:05)
[2019-09-27] MEDS ORDERED: BUMETANIDE INJ 4 MG in IV NS 0.9% 24 ML IV ONE (17:00)
--- NOTE | 2019-09-27 19:15 | NUR ---
ICU/RN RECEIVED PATIENT A/O X1 PATIENT CONTINUE TO ANSWER YES OR NO QUESTIONS BY NODDING. PATIENT IS ASLEEP WITH NO SIGN OF ANY DISTRESS. 2L OF 02 SATURATING AT 100% WITH NO SIGNS OF ANY RESPIRATORY DISTRESS. PATIENT IS SR WITH HR AT 99 ON BEDSIDE MONITOR. PICC LINE IN PLACE WITH LEVO INFUSING AT 0.2 MCG/KG/MIN AND D5NS AT 100CC/HR. FC IN PLACE WITH MINIMAL OUTPUT SEEN. PATIENT IS STILL ON LIS WITH BLACK GREENISH OUTPUT. ALL SAFETY PRECAUTIONS APPLIED WILL CONTINUE TO MONITOR PATIENT.
--- NOTE | 2019-09-27 20:37 | NUR ---
JOSEFINA ANTON CALLED GAVE UPDATE TO FAMILY ABOUT PATIENT. ANSWERED ALL QUESTIONS AND ANY CONCERNS HE HAD.
[2019-09-28] VITALS (78 sets, daily range): BP systolic 84–107; BP diastolic 42–69
[2019-09-28] MEDS: BLOOD SUGAR DIAGNOSTIC 1 EACH STRIP IN SCH ×4 (00:12→18:08)
[2019-09-28] MEDS: INSULIN REGULAR, HUMAN 100 UNIT/ML 3 ML VIAL SQ PRN ×2 (00:14→06:12)
[2019-09-28] MEDS: MORPHINE SULFATE INJ 2 MG/ML DISP.SYRIN IV PRN (00:19)
[2019-09-28] MEDS: NOREPINEPHRINE 8 MG in IV D5W 242 ML IV PRN ×3 (04:14→22:42)
[2019-09-28 05:09] LABS: BASOPHILS # (AUTO) 0.3 /CMM (0.0-0.2); BASOPHILS % (AUTO) 0.6 % (0.0-2.0); HEMATOCRIT 26 % (33-45); HEMOGLOBIN 7.3 g/dL (11.5-14.8); LYMPHOCYTES # (AUTO) 0.8 /CMM (0.8-4.8); LYMPHOCYTES % (AUTO) 1.5 % (20.0-44.0); MEAN CORPUSCULAR HGB CONC 28 g/dl (31.0-36.0); MEAN CORPUSCULAR VOLUME 96 fL (82-100); MONOCYTES # (AUTO) 1.1 /CMM (0.1-1.30); MONOCYTES % (AUTO) 2.3 % (2.0-12.0); NEUTROPHILS # (AUTO) 47.9 /CMM (1.8-8.9); NEUTROPHILS % (AUTO) 95.6 % (43.0-81.0); PLATELET COUNT (AUTO) 263 /CMM (150-450); RED BLOOD CELL COUNT(AUTO) 2.74 MIL/uL (4.0-5.2)
[2019-09-28 05:13] LABS: WHITE BLOOD COUNT (AUTO) 50.1 K/uL (4.3-11.0)
[2019-09-28 05:36] LABS: CALCIUM, SERUM 6.7 mg/dL (8.5-10.1); CREATININE 2.3 mg/dL (0.6-1.3); MAGNESIUM 2.2 mg/dL (1.8-2.4); PHOSPHORUS 6.9 mg/dL (2.5-4.9); POTASSIUM 4.6 mmol/L (3.5-5.1)
[2019-09-28] MEDS: AMPICILLIN 1 GM in IV NS 0.9% 50 ML IV SCH ×3 (05:40→20:54)
[2019-09-28] MEDS: IV D5/ 0.9% NACL 1,000 ML IV PRN ×2 (05:46→16:59)
[2019-09-28 06:02] LABS: LYMPHOCYTES % (MANUAL) 1 % (16-48); MONOCYTES % (MANUAL) 4 % (0-11.0); NEUTROPHILS % (MANUAL) 96 (42-76)
--- NOTE | 2019-09-28 07:42 | NUR ---
ICU/RN INITIAL NOTES,AM RECEIVED REPORT FROM NIGHT NURSE. PT OPENS EYES, WEAK AND LETHARGIC. ON 2LITERS NASAL CANULA, NO ACUTE DISTRESS NOTED. SINUS TACK ON TELE. LEFT NARE NGT IN PLACE TO LIS, MINIMAL TO NO OUTPUT. HUTCHINS CATH IN PLACE WITH MINIMAL URINE OUTPUT. RIGHT UPPER ARM PICC LINE PATENT AND INTACT,LEVO 0.2MCG/KG/MIN INFUSING FOR BP SUPPORT. ALL NEEDS WILL BE ATTENDED TO, SAFETY MEASURES TAKEN, BED IN LOW POSITION, SIDE RAILS UP, CALL LIGHT WITHIN REACH.
[2019-09-28] MEDS ORDERED: VANCOMYCIN 1 GM in IV D5W 250 ML IV SCH (09:00)
[2019-09-28] MEDS: HYDROCORTISONE SOD SUCCINATE 100 MG/2 ML VIAL IV SCH (09:10)
[2019-09-28] MEDS: MUPIROCIN OINT 2% 22 GM TUBE SCH ×2 (09:11→20:56)
[2019-09-28] MEDS: HEPARIN SODIUM, PORCINE 5000 UNITS/1 ML VIAL SQ SCH ×2 (09:12→20:56)
[2019-09-28] MEDS: PANTOPRAZOLE 40 MG VIAL IV SCH (09:14)
--- NOTE | 2019-09-28 19:20 | NUR ---
ICU/RN ENDING NOTES,AM REPORT ENDORSED TO NIGHT NURSE. PT ALERT, LETHARGIC, FOLLOWS SIMPLE COMMANDS. ON 2LITERS NASAL CANULA, NO ACUTE DISTRESS NOTED. ALL NEEDS ATTENDED TO, SAFETY MEASURES TAKEN. WILL CONTINUE TO MONITOR. NG TO LIS. SMALL OUTPUT NOTED.
[2019-09-29] VITALS (83 sets, daily range): BP systolic 45–110; BP diastolic 17–68
[2019-09-29] MEDS: BLOOD SUGAR DIAGNOSTIC 1 EACH STRIP IN SCH ×4 (00:01→18:45)
[2019-09-29] MEDS: MORPHINE SULFATE INJ 2 MG/ML DISP.SYRIN IV PRN (03:51)
[2019-09-29] MEDS: AMPICILLIN 1 GM in IV NS 0.9% 50 ML IV SCH ×3 (04:41→20:22)
[2019-09-29 04:56] LABS: BASOPHILS # (AUTO) 0.2 /CMM (0.0-0.2); BASOPHILS % (AUTO) 0.3 % (0.0-2.0); HEMATOCRIT 26 % (33-45); HEMOGLOBIN 7.5 g/dL (11.5-14.8); LYMPHOCYTES # (AUTO) 0.8 /CMM (0.8-4.8); LYMPHOCYTES % (AUTO) 1.3 % (20.0-44.0); MEAN CORPUSCULAR HGB CONC 28 g/dl (31.0-36.0); MEAN CORPUSCULAR VOLUME 95 fL (82-100); MONOCYTES # (AUTO) 3.1 /CMM (0.1-1.30); MONOCYTES % (AUTO) 5.3 % (2.0-12.0); NEUTROPHILS % (AUTO) 93.1 % (43.0-81.0); PLATELET COUNT (AUTO) 220 /CMM (150-450); RED BLOOD CELL COUNT(AUTO) 2.78 MIL/uL (4.0-5.2)
[2019-09-29 05:30] LABS: BILIRUBIN,TOTAL 1.3 mg/dL (0.2-1.0); CALCIUM, SERUM 6.4 mg/dL (8.5-10.1); CREATININE 2.4 mg/dL (0.6-1.3); MAGNESIUM 2.1 mg/dL (1.8-2.4); PHOSPHORUS 6.8 mg/dL (2.5-4.9); POTASSIUM 4.8 mmol/L (3.5-5.1); TOTAL PROTEIN, SERUM 4.7 g/dL (6.4-8.2)
[2019-09-29 05:39] LABS: ALBUMIN 0.8 g/dL (3.4-5.0)
[2019-09-29 05:43] LABS: MONOCYTES % (MANUAL) 3 % (0-11.0); NEUTROPHILS % (MANUAL) 97 (42-76)
[2019-09-29] MEDS: NOREPINEPHRINE 8 MG in IV D5W 242 ML IV PRN ×3 (07:47→19:32)
[2019-09-29] MEDS: PANTOPRAZOLE 40 MG VIAL IV SCH (09:53)
[2019-09-29] MEDS: MUPIROCIN OINT 2% 22 GM TUBE SCH ×2 (09:53→20:22)
[2019-09-29] MEDS: HEPARIN SODIUM, PORCINE 5000 UNITS/1 ML VIAL SQ SCH ×2 (09:55→20:22)
[2019-09-29] MEDS: IV D5/ 0.9% NACL 1,000 ML IV PRN (12:25)
--- NOTE | 2019-09-29 19:20 | NUR ---
RN OPENING NOTES RECEIVED PT ON BED OPEN EYES BUT NO REACTION TO VERBAL, PT ON O2 2L VIA NC BUT ON SHALLOW BEATHING WITH SPO2 94% PT IS DNR DNI. WITH ONGOING LEVOPHED @ 0.6MCG/KG/MIN INFUSING WELL WITH IRLANDA PICC LINE, WITH ONGOING ALSO D5NS@50ML/HR VIA IRLANDA PICC, PT WITH HUTCHINS CATHETER BUT NO OUTPUT NOTED MD WAS AWARE WILL CONT TO MONITOR, SAFETY MEASURE MAINTAINED, ON BEDSIDE MONITOR WITH READING SINUS TACHY 106, WILL CONT TO MONITOR
--- NOTE | 2019-09-29 19:30 | NUR ---
END OF SHIFT NOTE: PT CONTINUES TO BE DNR/DNI. LEVOPHED GTT INCREASED TO 0.6 MCG/KG/MIN THIS SHIFT. KATERIN-SYNEPHRINE GTT ORDERS IN CASE LEVO GTT IS MAXED. PT IS MINIMALLY RESPONSIVE, NOT FOLLOWING COMMANDS. PT'S TEMP THIS AM WAS 95.6 TYMPANIC, JULIETA HUGGER APPLIED, PT'S CURRENT TEMP IS 97.5 TYMPANIC WITH JULIETA HUGGER. NO BM THIS SHIFT. NG TUBE TO NIS 175ML OUT THIS SHIFT. PT CHECKED ON HOURLY AND PRN BY NURSING STAFF.
--- NOTE | 2019-09-29 20:06 | NUR ---
RN NOTES PHARMACY RECOMMEND FOR LEVOPHED 32MG IN D5W DUE TO PT HAVE ANDREW AND THEY DONT WANT TO OVERLOAD HER RELAYED IT TO DR. CESAR JIMENES WITH APPROVAL NOTED AND CARRIED OUT
[2019-09-29] MEDS: NOREPINEPHRINE 32 MG in IV NS 0.9% 218 ML IV PRN (21:59)
[2019-09-29] MEDS ORDERED: PHENYLEPHRINE 10 MG/ML VIAL ONE (22:47)
[2019-09-29] MEDS: PHENYLEPHRINE 50 MG in IV NS 0.9% 245 ML IV PRN (22:56)
[2019-09-30] VITALS (83 sets, daily range): BP systolic 32–95; BP diastolic 18–70
--- NOTE | 2019-09-30 | NUR ---
RN NOTES PT BLOOD PRESSURE DROPS WHEN WE CHANGE HE LEVOPHED FROM 8MG TO 32MG CONCENTRATION TITRATE IT UP TO 1MCG/KG/MIN BUT BP STILL 74/46 SPO2 IS 94 VIA 15L NON REBREATHER MASK PT ON KUSSMAUL RESPIRATION NOESYNEPHRINE STARTED AND TITRATE IT PER PROTOCOL DR. JIMENES MADE AWARE OF THE PT CONDITION AND HE SAW IT, FAMILY MADE AWARE OF THE LATEST CONDITION OF THE PT VIA PHONE CALL WILL CONT TO MONITOR THE PT
[2019-09-30] MEDS: BLOOD SUGAR DIAGNOSTIC 1 EACH STRIP IN SCH ×4 (00:32→17:21)
--- NOTE | 2019-09-30 02:14 | NUR ---
RN NOTES BLOOD PRESSURE STILL ON 70/61 WITH LEVOPHED ON 1 MCG/KG/MIN AND NEOSYNEPHRINE ON 3MCG/KG/MIN DR. JIMENES MADE AWARE WITH NO NEW ORDER. WILL CONT TO MONITOR THE PT
[2019-09-30] MEDS ORDERED: PHENYLEPHRINE 10 MG/ML VIAL ONE ×2 (03:13→06:21)
[2019-09-30] MEDS: PHENYLEPHRINE 50 MG in IV NS 0.9% 245 ML IV PRN ×3 (03:15→09:52)
[2019-09-30 04:38] LABS: BASOPHILS # (AUTO) 0.5 /CMM (0.0-0.2); HEMATOCRIT 28 % (33-45); HEMOGLOBIN 7.3 g/dL (11.5-14.8); LYMPHOCYTES # (AUTO) 1.2 /CMM (0.8-4.8); LYMPHOCYTES % (AUTO) 2.2 % (20.0-44.0); MEAN CORPUSCULAR HGB CONC 26 g/dl (31.0-36.0); MEAN CORPUSCULAR VOLUME 103 fL (82-100); MONOCYTES # (AUTO) 0.6 /CMM (0.1-1.30); MONOCYTES % (AUTO) 1.2 % (2.0-12.0); NEUTROPHILS # (AUTO) 52.9 /CMM (1.8-8.9); NEUTROPHILS % (AUTO) 95.6 % (43.0-81.0); PLATELET COUNT (AUTO) 163 /CMM (150-450); RED BLOOD CELL COUNT(AUTO) 2.72 MIL/uL (4.0-5.2)
[2019-09-30 05:07] LABS: CALCIUM, SERUM 6.6 mg/dL (8.5-10.1); CREATININE 2.6 mg/dL (0.6-1.3); MAGNESIUM 2.7 mg/dL (1.8-2.4); POTASSIUM 6.1 mmol/L (3.5-5.1)
[2019-09-30 05:10] LABS: PHOSPHORUS 8.9 mg/dL (2.5-4.9)
[2019-09-30] MEDS: INSULIN REGULAR, HUMAN 100 UNIT/ML 3 ML VIAL SQ PRN (05:24)
[2019-09-30] MEDS: AMPICILLIN 1 GM in IV NS 0.9% 50 ML IV SCH ×3 (05:25→21:14)
[2019-09-30] MEDS: NOREPINEPHRINE 32 MG in IV NS 0.9% 218 ML IV PRN ×3 (05:30→21:00)
--- NOTE | 2019-09-30 05:46 | NUR ---
RN NOTES RELAYED TO DR. JIMENES ABOUT THE CO2 6 AND PHOSPHORUS OF 8.6 WITH NO NEW ORDERS MADE
[2019-09-30 06:07] LABS: WHITE BLOOD COUNT (AUTO) 55.3 K/uL (4.3-11.0)
[2019-09-30 06:18] LABS: BAND % (MANUAL) 16 % (0.0-5.0); LYMPHOCYTES % (MANUAL) 1 % (16-48); MONOCYTES % (MANUAL) 1 % (0-11.0); NEUTROPHILS % (MANUAL) 82 (42-76)
[2019-09-30] MEDS: IV D5/ 0.9% NACL 1,000 ML IV PRN (07:00)
--- NOTE | 2019-09-30 07:07 | NUR ---
RN CLOSING NOTES PT ON BED ON LABORED GASPING BREATHING ON 15L NON REBREATHER MASK SPO2 ON 74% PT IS DNR/DNI CURRENT SITUATION WAS RELAYED TO DR. JIMENES, CURRENTTLY ON LEVOPHED 1MCG/KG/MIN AND NEOSYNEPHRINE 3MCG/KG/MIN BUT BP IS ON 50'S-70'S DR. JIMENES ALSO AWARE WITH NNO, ON HUTCHINS CATHETER WITH 10ML OUTPUT IN ENTIRE SHIFT, FAMILY IS AWARE ABOUT THE CURRENT SITUATION OF THE PT. ALL NEEDS ATTENDED WILL ENDORSED TO AM SHIFT NURSE
--- NOTE | 2019-09-30 08:00 | NUR ---
CRIMINAL INVESTIGATOR CUSTOMS RECEIVED PT COMATOSE WITH LABORED RESPIRATIONS. REMAINS HYPOTENSIVE DESPITE MAX DOSES OF LEVOPHED AND NEOSYNEPHRINE DRIPS. NO FURTHER ORDERS OBTAINED FOR PRESSORS. PERIPHERAL PULSES ARE NONPALPABLE, FEMORAL PULSES BARELY PALPABLE. PT DNR STATUS.
[2019-09-30] MEDS ORDERED: Sodium Bicarbonate 100 MEQ in IV D5/0.45 NACL 1,000 ML IV PRN (09:00)
[2019-09-30] MEDS: PANTOPRAZOLE 40 MG VIAL IV SCH (09:51)
[2019-09-30] MEDS: HEPARIN SODIUM, PORCINE 5000 UNITS/1 ML VIAL SQ SCH (09:53)
[2019-09-30] MEDS: MUPIROCIN OINT 2% 22 GM TUBE SCH ×2 (09:54→21:14)
--- NOTE | 2019-09-30 10:00 | NUR ---
COAL MILL OPERATOR PT REMAINS COMATOSE WITH LABORED RESP. PT'S SON WAS CONTACTED BY DR VACA TO UPDATE. HE WILL SPEAK TO THE REST OF HIS FAMILY REGARDING PUTTING PT ON COMFORT CARE. FAMILY WILL CALL US.
[2019-09-30] MEDS ORDERED: SODIUM CHLORIDE IV PRN (13:00)
[2019-09-30] MEDS ORDERED: DEXTROSE IV PRN (13:00)
[2019-09-30] MEDS ORDERED: SODIUM BICARBONATE IV PRN (13:00)
--- NOTE | 2019-09-30 13:00 | NUR ---
SENIOR QUALITATIVE RESEARCHER ACCUCHECK <20, REPEATED. GIVEN D50W IVP PER PROTOCOL. NOTIFIED DR VACA. ORDER RECEIVED TO CHANGE IVF. WILL START WHEN AVAILABLE. LAB DRAW TO VERIFY GLUCOSE LEVER ORDERED.
[2019-09-30] MEDS: NS 0.9% IV PRN ×2 (13:12→21:30)
[2019-09-30] MEDS: PHENYLEPHRINE IV PRN ×2 (13:12→21:30)
--- NOTE | 2019-09-30 14:00 | NUR ---
RECEIVED PATIENT FROM PRASAD KENYON FOR CONTINUITY OF CARE. PATIENT IS DECLINING IN HEALTH. BP LOW REGARDLESS OF PRESSERS. O2 SAT STARTING TO DROP. PATIENT NON-RESPONSIVE TO VERBAL/ TACTILE STIMULI.
--- NOTE | 2019-09-30 15:55 | NUR ---
CONTACTED PATIENT'S SON IN REGARDS TO PATIENT'S HEALTH STATUS. SON IS AWARE THAT PATIENT IS QUICKLY DECLINING IN HEALTH AND MIGHT NOT HAVE MUCH TIME LEFT.
--- NOTE | 2019-09-30 15:56 | NUR ---
AGONAL RESPIRATIONS NOTED, PATIENT IS CURRENTLY SATING IN THE 60S WITH A NON-REBREATHER AND SBP IN THE 60S. WILL CONTINUE TO MONITOR PATIENT.
--- NOTE | 2019-09-30 19:09 | NUR ---
RN CLOSING NOTE: PATIENT IS CURRENTLY IN BED, VS ARE UNSTABLE, HEALTH STATUS IS DETERIORATING, AGONAL RESPIRATIONS ON NON-REBREATHER. SR ON BEDSIDE MONITOR. PATIENT CONTINUES TO BE ON PRESSERS. SAFETY MEASURES IMPLEMENTED, BED IN LOWEST POSITION, LOCKED, SIDE RAILS UP X2, CALL LIGHT WITHIN REACH. ENDORSED TO PRASAD MALIK FOR CONTINUITY OF CARE.
--- NOTE | 2019-09-30 19:30 | NUR ---
RN OPENING NOTES The client is currently on bed. VS are currently unstable. The client is deteriorating, exhibits agonal respirations. The client continues to be on a non-rebreather. SR on bedside monitoring and external telemonitoring. The client is on vasopressors on max doses. All safety measures in place. Bed in the lowest position, side rails up x2, call light within reach. Will continue to monitor.
--- NOTE | 2019-10-01 00:33 | NUR ---
RN NOTES 2212: Pt noted w/ no pulse, BP. Pt DNR/DNI. TOD called. 2217: Admitting and RN supervisor metal fabricating notified. 222: Yusef Lau, continuous improvement specialist paged to notify of pts . 2222: Pts son called to give update. Stated no mortuary chosen at this time. 2230: Called [facility], spoke to Zachary. Stated ok to release body. 2245: Post mortem care done. Pt tagged and in body bag. 2350: [place] [facility] [place]
== END 2019-09-30 22:12 | disposition expired | DRG 871 ==
LOC: ER 16:29 → TELE1 19:34 → ICU 09-23 00:41
PROVIDERS: ADMIT Nurse Practitioner Acute Care; ATTEND Student in an Organized Health Care Education/Training Program
PROC: 30233N1 Transfusion of Nonautologous Red Blood Cells into Peripheral Vein, Percutaneous Approach (ICD-10-PCS; principal; 2019-09-23)
PROC: 02HV33Z Insertion of Infusion Device into Superior Vena Cava, Percutaneous Approach (ICD-10-PCS; 2019-09-27)
PROC: B548ZZA Ultrasonography of Superior Vena Cava, Guidance (ICD-10-PCS; 2019-09-27)
DX: A41.81 Sepsis due to Enterococcus (principal); E43 Unspecified severe protein-calorie malnutrition; G93.41 Metabolic encephalopathy; R65.21 Severe sepsis with septic shock; N17.0 Acute kidney failure with tubular necrosis; J18.9 Pneumonia, unspecified organism; E87.1 Hypo-osmolality and hyponatremia; E87.2 Acidosis; C78.7 Secondary malignant neoplasm of liver and intrahepatic bile duct; C78.89 Secondary malignant neoplasm of other digestive organs; I82.433 Acute embolism and thrombosis of popliteal vein, bilateral; I82.412 Acute embolism and thrombosis of left femoral vein; C79.89 Secondary malignant neoplasm of other specified sites; J98.11 Atelectasis; E86.1 Hypovolemia; E87.5 Hyperkalemia; I25.10 Atherosclerotic heart disease of native coronary artery without angina pectoris; D25.9 Leiomyoma of uterus, unspecified; Z66 Do not resuscitate; R62.7 Adult failure to thrive; Z86.711 Personal history of pulmonary embolism; Z90.49 Acquired absence of other specified parts of digestive tract; Z85.038 Personal history of other malignant neoplasm of large intestine; D50.0 Iron deficiency anemia secondary to blood loss (chronic); K57.30 Diverticulosis of large intestine without perforation or abscess without bleeding; R74.0 Nonspecific elevation of levels of transaminase and lactic acid dehydrogenase [LDH]; E88.09 Other disorders of plasma-protein metabolism, not elsewhere classified; Z68.26 Body mass index [BMI] 26.0-26.9, adult; L89.626 Pressure-induced deep tissue damage of left heel; L89.616 Pressure-induced deep tissue damage of right heel; L89.896 Pressure-induced deep tissue damage of other site; L89.156 Pressure-induced deep tissue damage of sacral region; L89.326 Pressure-induced deep tissue damage of left buttock; L89.316 Pressure-induced deep tissue damage of right buttock; Z22.322 Carrier or suspected carrier of Methicillin resistant Staphylococcus aureus; R91.8 Other nonspecific abnormal finding of lung field; R16.0 Hepatomegaly, not elsewhere classified; I73.9 Peripheral vascular disease, unspecified
CPT/HCPCS: 36415; 36569; 36600; 71045-TC; 71250-TC; 80048-TC; 80053-TC; 80061-TC; 80202-TC; 81000-TC; 82248-TC; 82533; 82550-TC; 82553; 82570-TC; 82728-TC; 82803-TC; 82947-TC; 82962-TC; 83540-TC; 83605-TC; 83615-TC; 83735-TC; 83880; 84100-TC; 84155-TC; 84300-TC; 84484-TC; 85025-TC; 85378-TC; 85385-TC; 85730-TC; 86140-TC; 86850-TC; 86921-TC; 87040-TC; 87081-TC; 87086-TC; 87186-TC; 93970-TC; A6253; A6403; C1751; C9113; G0378; J0290; J0692; J1644; J1720; J1815; J2270; J2370; J2405; J2543; J3370; J3490; J7030; J7040; J7042; J7050; J7060; P9016-BL; U0003-CS